=== PATIENT | male | born 1985 | race Caucasian/White ===

== ENCOUNTER 2022-06-16 09:23 | Emergency (ER) | payer MEDICAID ==
[~2022-06-16] VITALS: Ht 170.2 cm; Wt 774.0 kg
[2022-06-16 11:42] VITALS: BP 110/65
== END 2022-06-16 12:00 | disposition home or self-care (01) ==
LOC: ER 09:23
DX: F11.10 Opioid abuse, uncomplicated (principal)
CPT/HCPCS: 99283